=== PATIENT | male | born 1965 | race Caucasian/White ===

== ENCOUNTER 2022-08-11 13:53 | Emergency (ER) | payer MEDICARE ==
--- NOTE | 2022-08-11 14:55 | ERPHSYRPT ---
- History of Present Illness Historian: patient Exam Limitations: no limitations Patient Subjective Stated Complaint: Pt had a couple bouts of diarrhea and vomiting last night and this morning and he had some blood with a bowel movement last night and today, pt stated that it was bright red Triage Nursing Assessment: Pt brought to the ER by his , hypertensive, denies pain, denies pain to the abdomen with palpatation, pt is able to hold water down now, reports having a lot of abdominal gas, pt unsure if he has hemorrhoids or not, pulses normal, skin n/w/d, doesn't appear to be in any distress Physician History: 56 yo wm w N/V/D since last night. He denies abdominal pain but has had small amount of blood in his diarrhea. He denies hem atemesis/melena/fever/dysuria/hematuria. Pt takes 324mg po ASA daily. He states that colonoscopies have been negative x2. Chest pain/dyspnea/cough/coryza are denied. Timing/Duration: yesterday Activities at Onset: rest Quality: other (No abdominal pain) Severity of Pain-Max: none Severity of Pain-Current: none Modifying Factors: Improves With: nothing Associated Symptoms: denies symptoms, diarrhea, nausea, vomiting Previous symptoms: no prior history Allergies/Adverse Reactions: No Known Drug Allergies Allergy (Verified 08/11/22 14:23) Home Medications: Enalapril Maleate [Vasotec] 2.5 mg PO DAILY 08/11/22 [History] Fexofenadine HCl [Allergy Relief] 180 mg PO DAILY 08/11/22 [History] Pravastatin Sodium 40 mg PO DAILY 08/11/22 [History] Hx Influenza Vaccination/Date Given: Yes Hx Pneumococcal Vaccination/Date Given: Yes Travel Risk - International Travel Have you traveled outside of the country in past 3 weeks: No - Coronavirus Screening Are you exhibiting any of the following symptoms?: No Close contact with a COVID-19 positive Pt in past 14-21 Days: No - Vaccine Status Have you recieved a Covid-19 vaccination: Yes 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 - Vaccination Dates Dates if Unknown: unknown - Review of Systems Constitutional: No Symptoms Eyes: No Symptoms Ears, Nose, & Throat: No Symptoms Respiratory: No Symptoms Cardiac: No Symptoms Abdominal/Gastrointestinal: No Symptoms, Nausea, Vomiting, Diarrhea, Hematochezia Genitourinary Symptoms: No Symptoms Musculoskeletal: No Symptoms Skin: No Symptoms Neurological: No Symptoms Psychological: No Symptoms Endocrine: No Symptoms Hematologic/Lymphatic: No Symptoms Immunological/Allergic: No Symptoms - Past Medical History Pertinent Past Medical History: Yes Cardiac History: High Cholesterol, Hypertension - Past Surgical History Past Surgical History: Yes Other Surgical History: back x3, shoulder left - Social History Smoking Status: Never smoker Exposure to second hand smoke: No Drug Use: none Patient Lives Alone: No - Nursing Vital Signs Nursing Vital Signs: Initial Vital Signs Temperature 97.7 F 08/11/22 14:06 Pulse Rate 80 08/11/22 14:06 Blood Pressure 151/96 08/11/22 14:06 O2 Sat by Pulse Oximetry 97 08/11/22 14:06 Pain Scale Pain Intensity 3 Hypertension - Physical Exam General Appearance: no apparent distress Eye Exam: PERRL/EOMI, eyes nml inspection Ears, Nose, Throat Exam: normal ENT inspection, TMs normal, pharynx normal, moist mucous membranes Neck Exam: normal inspection, non-tender, supple, full range of motion, No men ingismus, No mass, No Brudzinski, No Kernig's Respiratory Exam: normal breath sounds, lungs clear, airway intact, No chest tenderness, No respiratory distress Cardiovascular Exam: regular rate/rhythm, normal heart sounds, normal peripheral pulses, capillary refill <2 sec, No murmur Gastrointestinal/Abdomen Exam: soft, normal bowel sounds, No tenderness, No distention Back Exam: normal inspection, normal range of motion, No CVA tenderness, No vertebral tenderness Extremity Exam: normal inspection, normal range of motion Neurologic Exam: alert, oriented x 3, 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, 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, normal mood/affect, nml cerebellar function, nml station & gait, sensation nml Skin Exam: normal color, warm, dry Lymphatic Exam: No adenopathy SpO2 Interpretation: normal SpO2: 97 O2 Delivery: Room Air - Course Nursing assessment & vital signs reviewed: Yes Ordered Tests: Active Orders 24 hr Category Date Time Status AMYLASE Stat Lab 08/11/22 14:59 Completed CBC W DIFF Stat Lab 08/11/22 14:59 Completed CMP Stat Lab 08/11/22 14:59 Completed LIPASE Stat Lab 08/11/22 14:59 Completed PROTIME WITH INR Stat Lab 08/11/22 14:59 Completed PTT Stat Lab 08/11/22 14:59 Completed TROPONIN Q4H Lab 08/11/22 14:59 Completed Lab/Rad Data: Laboratory Result Diagrams 08/11/22 14:59 08/11/22 14:59 Laboratory Results 08/11/22 08/11/22 08/11/22 Range/Units 14:59 14:59 14:59 WBC (4.0-10.5) x10^3/uL RBC (4.1-5.6) x10^6/uL Hgb (12.5-18.0) g/dL Hct (42-50) % MCV (78-100) fL MCH (26-32) pg MCHC (32-36) g/dL RDW (11.5-14.0) % Plt Count (150-450) x10^3/uL MPV (7.5-11.0) fL Gran % (36.0-66.0) % Immature Gran % (Auto) (0.00-0.4) % Nucleat RBC Rel Count (0.00-0.1) % Eos # (Auto) (0-0.5) x10^3/uL Immature Gran # (Auto) (0.00-0.03) x10^3u/L Absolute Lymphs (auto) (1.0-4.6) x10^3/uL Absolute Monos (auto) (0.0-1.3) x10^3/uL Absolute Nucleated RBC (0.00-0.01) x10^3u/L Lymphocytes % (24.0-44.0) % Monocytes % (0.0-12.0) % Eosinophils % (0.00-5.0) % Basophils % (0.0-0.4) % Absolute Granulocytes (1.4-6.9) x10^3/uL Basophils # (0-0.4) x10^3/uL PT 10.2 (9.4-12.5) SECONDS INR 0.93 (0.8-3.0) APTT 25.9 (25.1-36.5) SECONDS Sodium (137-145) mmol/L Potassium (3.5-5.1) mmol/L Chloride (98-107) mmol/L Carbon Dioxide (22-30) mmol/L Anion Gap (5-15) MEQ/L BUN (9-20) mg/dL Creatinine (0.66-1.25) mg/dL Estimated GFR ML/MIN Glucose (74-106) mg/dL Calcium (8.4-10.2) mg/dL Total Bilirubin (0.2-1.3) mg/dL AST (17-59) U/L ALT (0-50) U/L Alkaline Phosphatase (38-126) U/L Troponin I < 0.012 (0.000-0.034) ng/mL Serum Total Protein (6.3-8.2) g/dL Albumin (3.5-5.0) g/dL Amylase (30-110) U/L Lipase (23-300) U/L Influenza Type A Ag NEGATIVE (NEGATIVE) Influenza Type B Ag NEGATIVE (NEGATIVE) RSV (PCR) NEGATIVE (NEGATIVE) SARS-CoV-2 (PCR) NEGATIVE (NEGATIVE) 08/11/22 08/11/22 Range/Units 14:59 14:59 WBC 11.8 H (4.0-10.5) x10^3/uL RBC 5.24 (4.1-5.6) x10^6/uL Hgb 15.4 (12.5-18.0) g/dL Hct 47.2 (42-50) % MCV 90.1 (78-100) fL MCH 29.4 (26-32) pg MCHC 32.6 (32-36) g/dL RDW 12.4 (11.5-14.0) % Plt Count 251 (150-450) x10^3/uL MPV 10.7 (7.5-11.0) fL Gran % 82.3 H (36.0-66.0) % Immature Gran % (Auto) 0.3 (0.00-0.4) % Nucleat RBC Rel Count 0.0 (0.00-0.1) % Eos # (Auto) 0 (0-0.5) x10^3/uL Immature Gran # (Auto) 0.04 H (0.00-0.03) x10^3u/L Absolute Lymphs (auto) 1.46 (1.0-4.6) x10^3/uL Absolute Monos (auto) 0.56 (0.0-1.3) x10^3/uL Absolute Nucleated RBC 0.00 (0.00-0.01) x10^3u/L Lymphocytes % 12.4 L (24.0-44.0) % Monocytes % 4.8 (0.0-12.0) % Eosinophils % 0.0 (0.00-5.0) % Basophils % 0.2 (0.0-0.4) % Absolute Granulocytes 9.67 H (1.4-6.9) x10^3/uL Basophils # 0.02 (0-0.4) x10^3/uL PT (9.4-12.5) SECONDS INR (0.8-3.0) APTT (25.1-36.5) SECONDS Sodium 139 (137-145) mmol/L Potassium 4.5 (3.5-5.1) mmol/L Chloride 102 (98-107) mmol/L Carbon Dioxide 30 (22-30) mmol/L Anion Gap 11.1 (5-15) MEQ/L BUN 11 (9-20) mg/dL Creatinine 0.73 (0.66-1.25) mg/dL Estimated GFR > 60.0 ML/MIN Glucose 111 H (74-106) mg/dL Calcium 9.2 (8.4-10.2) mg/dL Total Bilirubin 0.40 (0.2-1.3) mg/dL AST 29 (17-59) U/L ALT 36 (0-50) U/L Alkaline Phosphatase 84 (38-126) U/L Troponin I (0.000-0.034) ng/mL Serum Total Protein 7.5 (6.3-8.2) g/dL Albumin 4.4 (3.5-5.0) g/dL Amylase 67 (30-110) U/L Lipase 46 (23-300) U/L Influenza Type A Ag (NEGATIVE) Influenza Type B Ag (NEGATIVE) RSV (PCR) (NEGATIVE) SARS-CoV-2 (PCR) (NEGATIVE) - Progress Progress Note: 08/11/22 17:43 Nursing note and vital signs reviewed No food or housing insecurities noted All lab results reviewed and shared w pt Abdomen NTTP on serial exams Counseled pt/family regarding: lab results, diagnosis, need for follow-up - Departure Departure Disposition: Home Clinical Impression: Viral gastritis Condition: Stable Critical Care Time: No Referrals: GABE HEWITT MD [Primary Care Provider] - Follow up/PCP as directed Instructions: Diarrhea and Travelers' Diarrhea, Adult (DC), Nausea and Vomiting, Adult (DC), Viral Gastroenteritis, Adult (DC) Additional Instructions: Fluids Zofran for nausea/vomiting Return to ER for increasing abdominal pain, inability to hold down fluids, or temperature greater than 100.5 Prescriptions: Ondansetron ODT 4 MG [Zofran Odt 4 mg] 4 mg PO Q6H PRN PRN #10 tablet PRN Reason: Nausea
[2022-08-11 15:00] LABS: Absolute Neutrophil Ct (ANC) 9.67 x10^3/uL (1.4-6.9); BASOPHIL % 0.2 % (0.0-0.4); Basophil (Absolute #) 0.02 x10^3/uL (0-0.4); Eosinophil (Absolute #) 0 x10^3/uL (0-0.5); Hematocrit 47.2 % (42-50); Hemoglobin 15.4 g/dL (12.5-18.0); IMMATURE GRAN # 0.04 x10^3u/L (0.00-0.03); IMMATURE GRAN % 0.3 % (0.00-0.4); Lymphocyte (Absolute #) 1.46 x10^3/uL (1.0-4.6); Lymphocytes % 12.4 % (24.0-44.0); Mean Cell Volume 90.1 fL (78-100); Mean Corpuscular Hemoglobin 29.4 pg (26-32); Mean Corpuscular Hgb Concent. 32.6 g/dL (32-36); Mean Platelet Volume 10.7 fL (7.5-11.0); Monocyte (Absolute #) 0.56 x10^3/uL (0.0-1.3); Monocytes % 4.8 % (0.0-12.0); Neutrophil % 82.3 % (36.0-66.0); Platelet Count 251 x10^3/uL (150-450); Red Blood Count 5.24 x10^6/uL (4.1-5.6); Red Cell Distribution Width 12.4 % (11.5-14.0); White Blood Count 11.8 x10^3/uL (4.0-10.5)
[2022-08-11 15:15] LABS: ALBUMIN 4.4 g/dL (3.5-5.0); ALKALINE PHOSPHATASE 84 U/L (38-126); AMYLASE 67 U/L (30-110); ANION GAP 11.1 MEQ/L (5-15); BLOOD UREA NITROGEN 11 mg/dL (9-20); CHLORIDE 102 mmol/L (98-107); Calcium 9.2 mg/dL (8.4-10.2); Carbon Dioxide 30 mmol/L (22-30); Creatinine 1 0.73 mg/dL (0.66-1.25); EST GLOMERULAR FILTRATION RATE > 60.0 ML/MIN; Glucose 111 mg/dL (74-106); LIPASE 46 U/L (23-300); Potassium 4.5 mmol/L (3.5-5.1); SGOT/AST 29 U/L (17-59); SGPT/ALT 36 U/L (0-50); SODIUM 139 mmol/L (137-145); Total Protein 7.5 g/dL (6.3-8.2)
[2022-08-11 15:17] LABS: INR 0.93 (0.8-3.0); PROTIME 10.2 SECONDS (9.4-12.5); PTT 25.9 SECONDS (25.1-36.5)
[2022-08-11 15:39] LABS: INFLUENZA A NEGATIVE (NEGATIVE); INFLUENZA B NEGATIVE (NEGATIVE); RESPIRATORY SYNCTIAL VIRUS NEGATIVE (NEGATIVE); SARS-CoV-2 Xpert Express NEGATIVE (NEGATIVE)
[2022-08-11 16:09] VITALS: BP 139/97; PULSE 67
[2022-08-11 17:44] VITALS: O2SAT 97
== END 2022-08-11 16:08 | disposition home or self-care (01) ==
LOC: ED 13:53
DX: A08.4 Viral intestinal infection, unspecified (principal); R11.2 Nausea with vomiting, unspecified; R19.7 Diarrhea, unspecified; E78.5 Hyperlipidemia, unspecified; I10 Essential (primary) hypertension; Z79.899 Other long term (current) drug therapy
CPT/HCPCS: 0241U; 36415; 80053; 82150; 83690; 84484; 85025; 85610; 85730; 99282